=== PATIENT | female | born 2000 | race Caucasian/White ===

== ENCOUNTER 2022-08-12 10:50 | Outpatient (CLI) | payer BC, SELFPAY ==
[2022-08-12 13:31] LABS: Chlamydia DNA Amplified* NOT DETECTED (No Detected); GC DNA Amplified* NOT DETECTED (No Detected)
[2022-08-12 14:45] LABS: Cholesterol* 197 mg/dL (90-199); Triglycerides* 92 mg/dL (40-149)
[2022-08-12 14:46] LABS: HDL Cholesterol* 98 mg/dL (>=50); LDL Cholesterol Calculated 81 mg/dL (<100)
== END 2022-08-12 10:51 | disposition home or self-care (01) ==
PROVIDERS: PCP Physician Assistant Medical; Visit Provider Registered Nurse
DX: Z01.419 Encounter for gynecological examination (general) (routine) without abnormal findings (principal); L65.9 Nonscarring hair loss, unspecified; Z11.3 Encounter for screening for infections with a predominantly sexual mode of transmission; Z13.6 Encounter for screening for cardiovascular disorders
CPT/HCPCS: 80061; 84443; 87491; 87591

== ENCOUNTER 2024-12-07 14:22 | Outpatient (CLI) | payer BC, SELFPAY | END 2024-12-07 14:23 | disposition home or self-care (01) | PROVIDERS: PCP Physician Assistant Medical; Visit Provider Physician Assistant Medical | DX: G90.A Postural orthostatic tachycardia syndrome [POTS] (principal); Z13.29 Encounter for screening for other suspected endocrine disorder | CPT/HCPCS: 80053; 84443 ==

== ENCOUNTER 2025-01-03 08:40 | Outpatient (CLI) | payer BC, SELFPAY | END 2025-01-03 08:41 | disposition home or self-care (01) | LOC: RAD 08:41 | PROVIDERS: PCP Physician Assistant Medical; Visit Provider Physician Assistant Medical | DX: G90.A Postural orthostatic tachycardia syndrome [POTS] (principal) | CPT/HCPCS: 93306 ==

== ENCOUNTER 2025-03-21 09:59 | Outpatient (CLI) | payer BC, SELFPAY | END 2025-03-21 10:00 | disposition home or self-care (01) | LOC: NFLDREF 03-29 03:21 | PROVIDERS: PCP Physician Assistant Medical; Referring Provider Physician Assistant Medical; Visit Provider Physician Assistant Medical | DX: Z11.1 Encounter for screening for respiratory tuberculosis (principal) | CPT/HCPCS: 86480 ==